=== PATIENT | female | born 1985 | race Caucasian/White ===

== ENCOUNTER 2019-02-23 08:02 | Emergency (ER) | payer OTHER ==
[~2019-02-23] VITALS: Ht 154.9 cm; Wt 77.3 kg
[2019-02-23] MEDS ORDERED: KETOROLAC TROMETHAMINE 60 MG/2 ML VIAL IM ONE (09:00)
[2019-02-23] MEDS ORDERED: PENICILLIN V POTASSIUM 500 MG TABLET PO ONE (09:00)
[2019-02-23] MEDS ORDERED: OxyCODONE HCL/ACETAMINOPHEN 5-325 MG TABLET PO ONE (09:00)
[2019-02-23] MEDS ORDERED: DiphenhydrAMINE HCL 50 MG/ML VIAL IVP ONE (10:00)
[2019-02-23] MEDS ORDERED: LORazepam 2 MG/ML VIAL IVP ONE (10:00)
[2019-02-23] MEDS ORDERED: PROCHLORPERAZINE EDISYLATE 5 MG/ML 2 ML VIAL IVP ONE (10:00)
[2019-02-23 11:51] VITALS: BP 95/50
== END 2019-02-23 13:24 | disposition home or self-care (01) ==
LOC: EMS 08:03
DX: K08.89 Other specified disorders of teeth and supporting structures (principal); R51 Headache; R22.0 Localized swelling, mass and lump, head; G89.29 Other chronic pain; Z90.49 Acquired absence of other specified parts of digestive tract; Z88.1 Allergy status to other antibiotic agents
CPT/HCPCS: 70450; 81025; 96372; 96374; 96375; 99284; J0780; J1200; J1885; J2060

== ENCOUNTER 2022-07-07 22:09 | Emergency (ER) | payer OTHER ==
[~2022-07-07] VITALS: Ht 160 cm; Wt 75.0 kg
[2022-07-07] MEDS ORDERED: IBUPROFEN 400 MG TABLET PO ONE (23:00)
[2022-07-07] MEDS ORDERED: ACETAMINOPHEN 325 MG TABLET PO ONE (23:00)
[2022-07-08] MEDS ORDERED: MORPHINE SULFATE 15 MG IR TABLET PO ONE (00:30)
[2022-07-08 01:57] VITALS: BP_DIAS 78
[2022-07-08 02:55] VITALS: BP_SYST 156
== END 2022-07-08 03:00 | disposition home or self-care (01) ==
LOC: EMS 22:55
DX: S90.31XA Contusion of right foot, initial encounter (principal); S90.811A Abrasion, right foot, initial encounter; W10.8XXA Fall (on) (from) other stairs and steps, initial encounter; Y93.89 Activity, other specified; Y92.098 Other place in other non-institutional residence as the place of occurrence of the external cause; Y99.8 Other external cause status
CPT/HCPCS: 99284; 73590-TC; 73610-TC; 73630-TC; Z7502; Z7610

== ENCOUNTER 2022-08-26 06:11 | Emergency (ER) | payer OTHER ==
[~2022-08-26] VITALS: Ht 157.5 cm; Wt 88.6 kg
[2022-08-26] MEDS ORDERED: ACETAMINOPHEN 500 MG TABLET PO ONE (06:45)
[2022-08-26 07:23] LABS: COVID AG,FIA SOURCE NASOPHARYNGEAL
[2022-08-26 07:49] LABS: INFLUENZA TYPE A NEGATIVE FOR TYPE A (NEGATIVE); INFLUENZA TYPE B NEGATIVE FOR TYPE B (NEGATIVE)
[2022-08-26 08:18] VITALS: BP 128/82
[2022-08-26] MEDS ORDERED: IBUP-2070 PO (08:35)
[2022-08-26] MEDS ORDERED: IBUPROFEN 600 MG TABLET PO ONE (08:45)
[2022-08-26] MEDS ORDERED: DEXAMETHASONE SOD PHOS 4 MG/ML 5 ML VIAL IM ONE (08:45)
[2022-08-26] MEDS ORDERED: PENICILLIN G BENZATHINE LA 1,200,000 UNITS/2 ML SYRINGE IM ONE (08:45)
== END 2022-08-26 09:00 | disposition home or self-care (01) ==
LOC: EMS 06:12
DX: J02.9 Acute pharyngitis, unspecified (principal); Z20.822 Contact with and (suspected) exposure to COVID-19; R51.9 Headache, unspecified; Z88.1 Allergy status to other antibiotic agents; Z90.49 Acquired absence of other specified parts of digestive tract; Z87.442 Personal history of urinary calculi
CPT/HCPCS: 99284; 87426; 87430; 87804; 93005; 96372; J0561; J1100